=== PATIENT | male | born 1950 | race Caucasian/White ===

== ENCOUNTER → 2016-08-20 | Outpatient (CLI) | payer OTHER | LOC: FIMAGING 09:48 | PROVIDERS: ATTEND Family Medicine | DX: M16.11 Unilateral primary osteoarthritis, right hip (principal) ==

== ENCOUNTER 2016-10-12 13:34 | Observation (INO) | payer OTHER ==
[2016-10-12] MEDS ORDERED: NS 1,000 ML IV ONE (14:22)
[2016-10-12 14:35] LABS: % IMMATURE GRANULYOCYTES 0.6 % (0.0-1.1); ABSOLUTE IMMATURE GRANULOCYTES 0.09 10^3/uL (0.00-0.10); ADD DIFF? NO; ADD MORPH? NO; ADD SCAN? NO; ATYPICAL LYMPHOCYTE FLAG 0 (0-99); FRAGMENT RBC FLAG 0 (0-99); HEMATOCRIT 50.2 % (40.0-51.0); HEMOGLOBIN 17.8 g/dL (13.7-17.5); LEFT SHIFT FLG 10 (0-99); LIPEMIA HEMOLYSIS FLAG 90 (0-99); MEAN CELL HEMOGLOBIN 30.8 pg (27.9-34.1); MEAN CELL HEMOGLOBIN CONCENTR. 35.5 g/dL (32.4-36.7); MEAN PLATELET VOLUME 9.4 fL (8.7-11.7); PLATELET CLUMPS FLAG 10 (0-99); PLATELET COUNT 188 10^3/uL (150-400); RED BLOOD CELL COUNT 5.77 10^6/uL (4.40-6.38); RED CELL DISTRIBUTION WIDTH 12.6 % (11.5-15.2)
[2016-10-12 14:54] LABS: ANION GAP 12 mEq/L (8-16); CALCIUM 9.4 mg/dL (8.5-10.4); CARBON DIOXIDE 21 mEq/l (22-31); CHLORIDE 105 mEq/L (97-110); CREATININE 1.3 mg/dL (0.7-1.3); GLOMERULAR FILTRATION RATE 56; GLUCOSE 106 mg/dL (70-100); POTASSIUM 4.3 mEq/L (3.5-5.2); SODIUM 138 mEq/L (134-144)
[2016-10-12 15:27] LABS: COLOR AMBER; LEUKOCYTE ESTERASE,URINE NEGATIVE (NEGATIVE); NITRITE,URINE NEGATIVE (NEGATIVE)
--- NOTE | 2016-10-12 15:33 | EDPHY ---
H & P Stated Complaint: rlq abd pain low grade fever Source: Patient Exam Limitations: No limitations - Personal History Current Tetanus/Diphtheria Vaccine: Yes - Medical/Surgical History Hx Asthma: No Hx Chronic Respiratory Disease: No Hx Diabetes: No Hx Cardiac Disease: No Hx Renal Disease: Yes Hx Cirrhosis: No Hx Alcoholism: No Hx HIV/AIDS: No Hx Splenectomy or Spleen Trauma: No Other PMH: has only one kidney/r hip osteoarthritis - Social History Smoking Status: Never smoked Time Seen by Provider: 10/12/16 14:22 HPI/ROS: CHIEF COMPLAINT: abdominal pain HISTORY OF PRESENT ILLNESS: 66-year-old male presents emergency department with his complaining of right-sided abdominal pain that started upon awakening this morning. Patient reports he woke up this morning with a mild right upper quadrant abdominal aching. He then reports getting significant chills and rigors. He crawled back into bed, when he got up out of bed again had a sharp pain in his right lower quadrant radiating towards his umbilicus. Patient reports continued pain in his right lower quadrant. 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 Patient denies nausea or vomiting, subjective fevers and chills, normal bowel movement this morning. Patient denies urinary urgency, frequency or dysuria. REVIEW OF SYSTEMS: A comprehensive 10 point review of systems is otherwise negative aside from elements mentioned in the history of present illness. (Aydee Rowland) - Physical Exam Exam: Physical Exam Gen: Alert and Oriented, NAD HEENT: PERRL, moist mucous membranes NECK: no meningismus CV: regular rate and regular rhythm PULM: CTAB, no wheezes ABDOMEN: Obese, periumbilical and right lower quadrant tenderness to palpation , guarding, no ecchymosis BS present BACK: No CVA tenderness NEURO: Neurologically grossly intact EXTREMITIES: normal appearing SKIN: no rash or break in skin on exposed skin PSYCH: answers questions appropriately. (Aydee Rowland) Constitutional: Initial Vital Signs Temperature (C) 37.2 C 10/12/16 13:44 Heart Rate 103 H 10/12/16 13:44 Respiratory Rate 22 H 10/12/16 13:44 Blood Pressure 157/82 H 10/12/16 13:44 O2 Sat (%) 92 10/12/16 13:44 O2 Delivery Mode Room Air Allergies/Adverse Reactions: No Known Allergies Allergy (Unverified 10/12/16 13:42) Home Medications: Medication Instructions Recorded Amlodipine Besylate [Norvasc] 5 mg PO DAILY 10/12/16 Simvastatin [Zocor] 20 mg PO DAILY 10/12/16 amLODIPine BESYLATE [Norvasc 5 mg 5 mg PO DAILY 10/12/16 (*)] Medical Decision Making - Diagnostics Imaging Results: Imaging Impressions Abdomen CT 10/12/16 15:03 Impression: 1. Acute appendicitis with periappendiceal fluid suspicious for a rupture without visible abscess or free air. 2. Severely atrophic left kidney measuring approximately 2 cm. 3. Nonobstructing 2 mm right renal stone. 3. Additional findings, as above. Findings discussed with Aydee Rowland NP on October 12, 2016 at 1609 hours. ED Course/Re-evaluation: IV established, CBC, chemistry panel, lactate, LFTs, lipase, urinalysis ordered. Patient has a temperature of 38.5degrees orally. He will be given 650 mg of Tylenol rectally. Patient has a elevated white blood cell count [id number] with a left shift, chemistry panel is unremarkable, lactate is 1.9, urinalysis shows no evidence of infection. LFTs unremarkable aside from a total bilirubin of 1.7. CT abdomen pelvis obtained showing acute appendicitis. Patient is given 1 g of Invanz IV, Dr. Pacheco will take him to the operating room. (Aydee Rowland) Differential Diagnosis: Diagnosis considered but not limited to appendicitis, pyelonephritis, diverticulitis (Aydee Rowland) Other Provider: I have evaluated and participated in the management of this patient. My co- signature indicates that I have reviewed this chart and that I agree with the findings and the plan of care as documented. My personal history and physical findings include: 66-year-old male with right lower quadrant abdominal pain that began earlier today. He has a leukocytosis. On examination his abdomen is obese, with tenderness and guarding in the right lower quadrant. Lungs are clear to auscultation. Heart has regular rate and rhythm. He is awake and alert. CT scanning revealed appendicitis. He was seen by Dr. Kessler and will be taken to the operating room for appendectomy. (Danielle Vasquez) - Data Points Laboratory Results: Laboratory Results 10/12/16 14:25 10/12/16 14:25 10/12/16 10/12/16 10/12/16 15:10 14:25 14:25 WBC RBC Hgb Hct MCV MCH MCHC RDW Plt Count MPV Neut % (Auto) Lymph % (Auto) [place] % (Auto) Eos % (Auto) Baso % (Auto) Nucleat RBC Rel Count Absolute Neuts (auto) Absolute Lymphs (auto) Absolute Monos (auto) Absolute Eos (auto) Absolute Basos (auto) Absolute Nucleated RBC Immature Gran % Immature Gran # VBG Lactic Acid Sodium 138 mEq/L mEq/L (134-144) Potassium 4.3 mEq/L mEq/L (3.5-5.2) Chloride 105 mEq/L mEq/L (97-110) Carbon Dioxide 21 mEq/l L mEq/l (22-31) Anion Gap 12 mEq/L mEq/L (8-16) BUN 20 mg/dL mg/dL (7-23) Creatinine 1.3 mg/dL mg/dL (0.7-1.3) Estimated GFR 56 Glucose 106 mg/dL H mg/dL (70-100) Calcium 9.4 mg/dL mg/dL (8.5-10.4) Total Bilirubin 1.7 mg/dL H mg/dL (0.1-1.4) Conjugated Bilirubin 0.6 mg/dL H mg/dL (0.0-0.5) Unconjugated Bilirubin 1.1 mg/dL mg/dL (0.0-1.1) AST 26 IU/L IU/L (17-59) ALT 39 IU/L IU/L (21-72) Alkaline Phosphatase 87 IU/L IU/L (38-126) Total Protein 7.3 g/dL g/dL (6.3-8.2) Albumin 4.3 g/dL g/dL (3.5-5.0) Lipase 93.0 IU/L IU/L (23-300) Urine Color OBEY Urine Appearance HAZY Urine pH 6.0 (5.0-7.5) Ur Specific [place] 1.021 (1.002-1.030) Urine Protein 2+ H (NEGATIVE) Urine Ketones TRACE H (NEGATIVE) Urine Blood 1+ H (NEGATIVE) Urine Nitrate NEGATIVE (NEGATIVE) Urine Bilirubin NEGATIVE (NEGATIVE) Urine Urobilinogen NEGATIVE EU EU (0.2-1.0) Ur Leukocyte Esterase NEGATIVE (NEGATIVE) Urine RBC 3-5 /hpf H /hpf (0-3) Urine WBC NONE SEEN /hpf /hpf (0-3) Ur Epithelial Cells Not Reported Granular Casts 1-5 /lpf /lpf (0-1) Urine Mucus 4+ /lpf H /lpf (NONE-1+) Urine Glucose NEGATIVE (NEGATIVE) 10/12/16 10/12/16 14:25 14:25 WBC 14.12 10^3/uL H 10^3/uL (3.80-9.50) RBC 5.77 10^6/uL 10^6/uL (4.40-6.38) Hgb 17.8 g/dL H g/dL (13.7-17.5) Hct 50.2 % % (40.0-51.0) MCV 87.0 fL fL (81.5-99.8) MCH 30.8 pg pg (27.9-34.1) MCHC 35.5 g/dL g/dL (32.4-36.7) RDW 12.6 % % (11.5-15.2) Plt Count 188 10^3/uL 10^3/uL (150-400) MPV 9.4 fL fL (8.7-11.7) Neut % (Auto) 93.6 % H % (39.3-74.2) Lymph % (Auto) 4.3 % L % (15.0-45.0) [place] % (Auto) 1.2 % L % (4.5-13.0) Eos % (Auto) 0.1 % L % (0.6-7.6) Baso % (Auto) 0.2 % L % (0.3-1.7) Nucleat RBC Rel Count 0.0 % % (0.0-0.2) Absolute Neuts (auto) 13.21 10^3/uL H 10^3/uL (1.70-6.50) Absolute Lymphs (auto) 0.61 10^3/uL L 10^3/uL (1.00-3.00) Absolute Monos (auto) 0.17 10^3/uL L 10^3/uL (0.30-0.80) Absolute Eos (auto) 0.01 10^3/uL L 10^3/uL (0.03-0.40) Absolute Basos (auto) 0.03 10^3/uL 10^3/uL (0.02-0.10) Absolute Nucleated RBC 0.00 10^3/uL 10^3/uL (0-0.01) Immature Gran % 0.6 % % (0.0-1.1) Immature Gran # 0.09 10^3/uL 10^3/uL (0.00-0.10) VBG Lactic Acid 1.9 mmol/L mmol/L (0.7-2.1) Sodium Potassium Chloride Carbon Dioxide Anion Gap BUN Creatinine Estimated GFR Glucose Calcium Total Bilirubin Conjugated Bilirubin Unconjugated Bilirubin AST ALT Alkaline Phosphatase Total Protein Albumin Lipase Urine Color Urine Appearance Urine pH Ur Specific [place] Urine Protein Urine Ketones Urine Blood Urine Nitrate Urine Bilirubin Urine Urobilinogen Ur Leukocyte Esterase Urine RBC Urine WBC Ur Epithelial Cells Granular Casts Urine Mucus Urine Glucose Medications Given: Discontinued Medications Acetaminophen (Tylenol Rectal) 650 mg [place] EDNOW ONE Stop: 10/12/16 15:39 Last Admin: 10/12/16 16:19 Dose: 650 mg Sodium Chloride (Ns) 1,000 mls @ 0 mls/hr IV ONCE ONE PRN Reason: Wide Open Stop: 10/12/16 14:23 Last Admin: 10/12/16 14:38 Dose: 1,000 mls Ertapenem 1 gm/ Sodium (Chloride) 100 mls @ 200 mls/hr IV EDNOW ONE PRN Reason: Protocol Stop: 10/12/16 17:02 Last Admin: 10/12/16 17:21 Dose: 100 mls Departure - Departure Disposition: [facility] Inpatient Acute Clinical Impression: Acute appendicitis Qualifiers: Acute appendicitis type: with localized peritonitis Qualified Code(s): K35.3 - Acute appendicitis with localized peritonitis Condition: Fair
[2016-10-12 15:37] LABS: MUCUS 4+ /lpf (NONE-1+)
[2016-10-12 15:38] LABS: WBC,URINE NONE SEEN /hpf (0-3)
[2016-10-12] MEDS ORDERED: ACETAMINOPHEN 650 MG SUPP PR ONE (15:38)
[2016-10-12] MEDS ORDERED: IOPAMIDOL (ISOVUE-300) 100 ML BTL ONE (15:41)
[2016-10-12 15:53] LABS: ALBUMIN 4.3 g/dL (3.5-5.0); BILIRUBIN,TOTAL 1.7 mg/dL (0.1-1.4); BILIRUBIN-CONJUGATED 0.6 mg/dL (0.0-0.5); BILIRUBIN-UNCONJUGATED 1.1 mg/dL (0.0-1.1); TOTAL PROTEIN 7.3 g/dL (6.3-8.2)
[2016-10-12] MEDS ORDERED: ERTAPENEM 1 GM in NS 100 ML IV ONE (16:33)
[2016-10-12] MEDS ORDERED: BUPIVACAINE 0.25% 30 ML SDV ONE (17:05)
--- NOTE | 2016-10-12 17:24 | PDGENHP ---
History and Physical - Chief Complaint abd pain - History of Present Illness 66 y/o male with onset abd pain early today localizing to the RLQ. He came to the ED and was diagnosed with appendicitis and surgical consult requested History Information - Allergies/Home Medication List Allergies/Adverse Reactions: No Known Allergies Allergy (Unverified 10/12/16 13:42) Home Medications: Allopurinol 10/12/16 [Last Taken Unknown] Amlodipine Besylate 10/12/16 [Last Taken Unknown] SIMVASTATIN 10/12/16 [Last Taken Unknown] I have personally reviewed and updated: family history, medical history, social history, surgical history - Past Medical History hypertension, hyperlipidemia Additional medical history: osteoarthritis right hip - Surgical History Reports: no pertinent surgical hx - Family History Positive for: hypertension - Social History Smoking Status: Never smoked Alcohol Use: Sober Drug Use: None Additional social history: here with who has medical POA Review of Systems Constitutional: Reports: chills Cardiac: Reports: no symptoms Respiratory: Reports: no symptoms Gastrointestinal: Reports: abdominal pain, nausea Genitourinary: Reports: dysuria (pain with micturation) Muscolosketal: Reports: joint pain (right hip) Skin: Reports: no symptoms Neurological: Reports: no symptoms Hematologic/Lymphatic: Reports: no symptoms Immunologic/Allergy: Reports: no symptoms Physical Exam Temp Pulse Resp BP Pulse Ox 38.5 C H 87 22 H 147/82 H 94 10/12/16 15:04 10/12/16 15:27 10/12/16 15:27 10/12/16 15:27 10/12/16 15:27 Constitutional: obese, uncomfortable Cardiovascular: regular rate and rhythym Respiratory: no respiratory distress, no rales or rhonchi Gastrointestinal: tenderness (RLQ/+ Rovising's sign), other (small umbilical hernia) Genitourinary: no bladder fullness Skin: warm Neurologic: AAOx3 Psychiatric: interacting appropriately, not anxious Lab Data & Imaging Review 10/12/16 14:25 10/12/16 14:25 WBC 14.12 10^3/uL (3.80-9.50) H 10/12/16 14:25 RBC 5.77 10^6/uL (4.40-6.38) 10/12/16 14:25 Hgb 17.8 g/dL (13.7-17.5) H 10/12/16 14:25 Hct 50.2 % (40.0-51.0) 10/12/16 14:25 MCV 87.0 fL (81.5-99.8) 10/12/16 14:25 MCH 30.8 pg (27.9-34.1) 10/12/16 14:25 MCHC 35.5 g/dL (32.4-36.7) 10/12/16 14:25 RDW 12.6 % (11.5-15.2) 10/12/16 14:25 Plt Count 188 10^3/uL (150-400) 10/12/16 14:25 MPV 9.4 fL (8.7-11.7) 10/12/16 14:25 Neut % (Auto) 93.6 % (39.3-74.2) H 10/12/16 14:25 Lymph % (Auto) 4.3 % (15.0-45.0) L 10/12/16 14:25 [place] % (Auto) 1.2 % (4.5-13.0) L 10/12/16 14:25 Eos % (Auto) 0.1 % (0.6-7.6) L 10/12/16 14:25 Baso % (Auto) 0.2 % (0.3-1.7) L 10/12/16 14:25 Nucleat RBC Rel Count 0.0 % (0.0-0.2) 10/12/16 14:25 Absolute Neuts (auto) 13.21 10^3/uL (1.70-6.50) H 10/12/16 14:25 Absolute Lymphs (auto) 0.61 10^3/uL (1.00-3.00) L 10/12/16 14:25 Absolute Monos (auto) 0.17 10^3/uL (0.30-0.80) L 10/12/16 14:25 Absolute Eos (auto) 0.01 10^3/uL (0.03-0.40) L 10/12/16 14:25 Absolute Basos (auto) 0.03 10^3/uL (0.02-0.10) 10/12/16 14:25 Absolute Nucleated RBC 0.00 10^3/uL (0-0.01) 10/12/16 14:25 Immature Gran % 0.6 % (0.0-1.1) 10/12/16 14:25 Immature Gran # 0.09 10^3/uL (0.00-0.10) 10/12/16 14:25 VBG Lactic Acid 1.9 mmol/L (0.7-2.1) 10/12/16 14:25 Sodium 138 mEq/L (134-144) 10/12/16 14:25 Potassium 4.3 mEq/L (3.5-5.2) 10/12/16 14:25 Chloride 105 mEq/L (97-110) 10/12/16 14:25 Carbon Dioxide 21 mEq/l (22-31) L 10/12/16 14:25 Anion Gap 12 mEq/L (8-16) 10/12/16 14:25 BUN 20 mg/dL (7-23) 10/12/16 14:25 Creatinine 1.3 mg/dL (0.7-1.3) 10/12/16 14:25 Estimated GFR 56 10/12/16 14:25 Glucose 106 mg/dL (70-100) H 10/12/16 14:25 Calcium 9.4 mg/dL (8.5-10.4) 10/12/16 14:25 Total Bilirubin 1.7 mg/dL (0.1-1.4) H 10/12/16 14:25 Conjugated Bilirubin 0.6 mg/dL (0.0-0.5) H 10/12/16 14:25 Unconjugated Bilirubin 1.1 mg/dL (0.0-1.1) 10/12/16 14:25 AST 26 IU/L (17-59) 10/12/16 14:25 ALT 39 IU/L (21-72) 10/12/16 14:25 Alkaline Phosphatase 87 IU/L (38-126) 10/12/16 14:25 Total Protein 7.3 g/dL (6.3-8.2) 10/12/16 14:25 Albumin 4.3 g/dL (3.5-5.0) 10/12/16 14:25 Lipase 93.0 IU/L (23-300) 10/12/16 14:25 Urine Color OBEY 10/12/16 15:10 Urine Appearance HAZY 10/12/16 15:10 Urine pH 6.0 (5.0-7.5) 10/12/16 15:10 Ur Specific [place] 1.021 (1.002-1.030) 10/12/16 15:10 Urine Protein 2+ (NEGATIVE) H 10/12/16 15:10 Urine Ketones TRACE (NEGATIVE) H 10/12/16 15:10 Urine Blood 1+ (NEGATIVE) H 10/12/16 15:10 Urine Nitrate NEGATIVE (NEGATIVE) 10/12/16 15:10 Urine Bilirubin NEGATIVE (NEGATIVE) 10/12/16 15:10 Urine Urobilinogen NEGATIVE EU (0.2-1.0) 10/12/16 15:10 Ur Leukocyte Esterase NEGATIVE (NEGATIVE) 10/12/16 15:10 Urine RBC 3-5 /hpf (0-3) H 10/12/16 15:10 Urine WBC NONE SEEN /hpf (0-3) 10/12/16 15:10 Ur Epithelial Cells Not Reported 10/12/16 15:10 Granular Casts 1-5 /lpf (0-1) 10/12/16 15:10 Urine Mucus 4+ /lpf (NONE-1+) H 10/12/16 15:10 Urine Glucose NEGATIVE (NEGATIVE) 10/12/16 15:10 Interpretation: CT shows 2 appendicoliths/periappendiceal inflammation Assessment & Plan Assessment: Acute appendicitis (Acute) obesity HTN OA/hx gout I recommended lap appendectomy and repair of his umbilical hernia We discussed the risks and expected recovery, informed consent was obtined Plan: lap appendectomy/repair umbilical hernia IV Invanz crow-op SCD's for VTE prophylaxis
[2016-10-12] MEDS ORDERED: MIDAZOLAM 2 MG/2 ML VIAL ONE (17:38)
[2016-10-12] MEDS ORDERED: DEXAMETHASONE 4 MG/ML VIAL ONE (17:44)
[2016-10-12] MEDS ORDERED: fentaNYL 100 MCG/2 ML INJ ONE (17:44)
[2016-10-12] MEDS ORDERED: PROPOFOL/EMULSION 500 MG/50 ML BOTTLE IV ONE (17:44)
[2016-10-12] MEDS ORDERED: ONDANSETRON 4 MG/2 ML VIAL ONE (17:45)
[2016-10-12] MEDS ORDERED: LIDOCAINE 2% 100 MG/5 ML SYR ONE (17:45)
[2016-10-12] MEDS ORDERED: ROCURONIUM 50 MG/5 ML VIAL ONE (17:45)
[2016-10-12] MEDS ORDERED: PHENYLEPHRINE HCL 100 MCG/ML SYR ONE (18:00)
[2016-10-12] MEDS ORDERED: SUGAMMADEX SODIUM 500 MG/5 ML VIAL IVP ONE (18:39)
--- NOTE | 2016-10-12 19:00 | POSTOPPROG ---
Post Op Note Date of Operation: 10/12/16 Surgeon: Pedro Pacheco (, FACS) Anesthesiologist: Theo Meléndez MD Anesthesia: GET(General Endotracheal) Pre-op Diagnosis: appendicits/umbilical hernia Post-op Diagnosis: same Procedure: lap appendectomy/repair umbilical hernia Findings: acute appendicitis/non-incarcerated umbilical hernia Inf/Abcess present in the surg proc area at time of surgery?: Yes Depth: Organ Space Specimen(s): appendix
[2016-10-12] MEDS ORDERED: ONDANSETRON 4 MG/2 ML VIAL IVP PRN (19:01)
[2016-10-12] MEDS ORDERED: HYDROmorphONE/DILAUDID 1 MG/ML SYR IVP PRN (19:01)
[2016-10-12] MEDS ORDERED: METOCLOPRAMIDE 10 MG/2 ML VIAL IVP PRN (19:01)
[2016-10-12] MEDS ORDERED: MAGNESIUM HYDROXIDE 30 ML UDCUP PO PRN (19:01)
[2016-10-12] MEDS ORDERED: TEMAZEPAM 15 MG CAP PO PRN (19:01)
[2016-10-12] MEDS ORDERED: HYDROCODONE/APAP 5/325 TAB PO PRN (19:01)
[2016-10-12] MEDS ORDERED: KETOROLAC 15 MG/1 ML SDV ONE (19:08)
[2016-10-12] MEDS: LR 1,000 ML IV SCH (20:23)
[2016-10-12] MEDS: KETOROLAC 15 MG/1 ML SDV IVP SCH (23:42)
--- NOTE | 2016-10-13 04:58 | GOP ---
[f rep st] OPERATIVE REPORT DATE OF OPERATION: SURGEON: Pedro Pacheco MD, FACS ANESTHESIA: General endotracheal. ANESTHESIOLOGIST: Theo Meléndez MD PREOPERATIVE DIAGNOSIS: 1. Acute appendicitis. 2. Umbilical hernia. POSTOPERATIVE DIAGNOSIS: 1. Acute appendicitis. 2. Umbilical hernia. PROCEDURE PERFORMED: 1. Laparoscopic appendectomy. 2. Open repair umbilical hernia. FINDINGS: 1. Acute suppurative appendicitis without perforation or gangrene. 1. Small not incarcerated umbilical hernia. ESTIMATED BLOOD LOSS: 10 mL. DESCRIPTION OF PROCEDURE: After informed consent was obtained, the patient was brought to the operating room and placed under general anesthesia. The abdomen was prepped and draped in usual fashion. Before proceeding, a time-out and identification of the patient was performed. The patient had received 1 g of Invanz preoperatively. 0.25% Marcaine was used to infiltrate the infraumbilical skin. A curvilinear incision was made and dissection was carried out down to the fascia. The umbilical stalk was detached from the underlying fascia and a small hernia was identified and reduced into the preperitoneal space. This measured no more than 6 mm in diameter. With ventral traction applied to the abdominal wall, Veress needle was introduced through the through the umbilical hernia into the peritoneum and position was confirmed by saline infusion. A pneumoperitoneum was established with CO2 gas to a pressure of 15 mmHg. The Veress needle was withdrawn and replaced with a 12 mm bladeless trocar. A 0 degree scope was introduced and the peritoneal cavity was visualized. Additional 5 mm ports were placed in the suprapubic midline and in the left lower quadrant under direct visualization. The table was positioned in Trendelenburg. The 5 mm ports were used introduced the atraumatic grasping forceps. The appendix was mobilized and noted to be suppurative, but without evidence of perforation or gangrene. The Harmonic Scalpel was used to dispatch the mesoappendix. The appendix was from the cecum with a firing of the ELOINA stapler and the appendix was retrieved through the umbilical port site using an Endopouch. The right lower quadrant pericolic gutter were irrigated with normal saline until the effluent was clear. Hemostasis appeared secure. The pneumoperitoneum was evacuated. All ports were removed. The umbilical fascial defect was repaired transversely with interrupted 0 Vicryl sutures. Subcutaneous tissues were closed with 3-0 and 4-0 Monocryl suture for a final subcuticular closure of all incisions. Mastisol and Steri-Strips were applied. The patient was returned extubated to the recovery room in satisfactory condition. Needle, sponge, and instrument counts were correct. COMPLICATIONS: None. /[id number]/MODL MTDD
[2016-10-13] MEDS: KETOROLAC 15 MG/1 ML SDV IVP SCH ×2 (05:24→11:08)
[2016-10-13] MEDS: LR 1,000 ML IV SCH (05:25)
[2016-10-13 07:57] VITALS: BP 126/73; PULSE 72; RESP 18; TEMP 98.2; O2SAT 94
--- NOTE | 2016-10-13 08:39 | PDDCSUM ---
Discharge Summary Discharge Summary: DOA: 10/12 DOD: 10/13/16 DC Dx: appendicitis Procedure: lap appendectomy Hospital course: 66 y/o male with acute suppurative appendicitis underwent appendectomy after receiving one gram Ertapenam. Post op he had mild pain controlled with Toradol. He received a second dose of Ertapenam the morning after surgery and his diet was advance. He was discharged home without additional antibiotics and will follow up in my office in the upcoming week before he leaves for vacation. He received Lovenox 40 mg post op and will start ASA 325 mg/day for 30 days. Additional Rx written for Adrian #[id number] He will resume Lipitor, Norvasc as prescribed. condition at time of discharge improved. Jason Pacheco MD, FACS
[2016-10-13] MEDS ORDERED: ENOXAPARIN 40 MG/0.4 ML SYR SC SCH (09:00)
[2016-10-13] MEDS ORDERED: amLODIPine BESYLATE 5 MG TAB PO SCH (09:00)
[2016-10-13] MEDS ORDERED: ATORVASTATIN CALCIUM 10 MG TAB PO SCH (09:00)
[2016-10-13] MEDS ORDERED: ASPIRIN 325 MG TAB PO SCH (09:00)
[2016-10-13] MEDS ORDERED: ERTAPENEM 1 GM in NS 100 ML IV SCH (09:00)
== END 2016-10-13 11:52 | disposition home or self-care (01) ==
LOC: INTOOBSV 16:32 → F1N 20:07
PROVIDERS: ADMIT Surgery; ATTEND Surgery
DX: K35.80 Unspecified acute appendicitis (principal); K42.9 Umbilical hernia without obstruction or gangrene; N20.0 Calculus of kidney; Q60.0 Renal agenesis, unilateral; I10 Essential (primary) hypertension; E78.5 Hyperlipidemia, unspecified; M10.9 Gout, unspecified
CPT/HCPCS: 96374; G0378; J1100; J1335; J1650; J1885; J2001; J2250; J2370; J2405; J2704; J3010; Q9967

== ENCOUNTER 2017-01-28 05:59 | Inpatient (IN) | payer OTHER ==
[2017-01-28] MEDS ORDERED: TRANEXAMIC ACID 3,000 MG in NS 50 ML IRR ONE (06:00)
[2017-01-28] MEDS ORDERED: ROPIVACAINE 0.2% 80 MG, EPINEPHrine 0.2 MG, KETOROLAC TROMETHAMINE 30 MG in BAG 0 ML IU ONE (06:00)
[2017-01-28] MEDS ORDERED: FAMOTIDINE 20 MG TAB PO ONE (06:44)
[2017-01-28] MEDS ORDERED: ACETAMINOPHEN 325 MG TAB PO ONE (06:44)
[2017-01-28] MEDS ORDERED: DEXAMETHASONE 4 MG/ML VIAL IVP ONE (06:44)
[2017-01-28] MEDS ORDERED: ceFAZolin 2 GM/DEXTROSE 100 ML IV ONE (06:44)
[2017-01-28] MEDS ORDERED: LR 1,000 ML IV ONE (06:46)
[2017-01-28] MEDS ORDERED: TRANEXAMIC ACID 3,000 MG/50 ML BAG IRR ONE (06:56)
[2017-01-28] MEDS ORDERED: LIDOCAINE 1% 2 ML INJ ID PRN (07:09)
[2017-01-28] MEDS ORDERED: LIDOCAINE 1% 2 ML INJ ONE (07:13)
--- NOTE | 2017-01-28 07:16 | PDHPUP ---
History & Physical Update H&P update statement: This history and physical update is based on an assessment of the patient which was completed after admission or registration (within 24 hours), but prior to the surgery/procedure. H&P update: H&P reviewed & patient examined, no change in patient's condition since H&P completed
[2017-01-28] MEDS ORDERED: MIDAZOLAM 2 MG/2 ML VIAL IVP ONE (07:40)
--- NOTE | 2017-01-28 07:40 | PDANEPAE ---
ANE History of Present Illness right hip OA p/f R KACY ANE Past Medical History - Cardiovascular History Hx Hypertension: Yes Hx Arrhythmias: No Hx Chest Pain: No Hx Coronary Artery / Peripheral Vascular Disease: No Hx CHF / Valvular Disease: No Hx Palpitations: No Cardiovascular History Comment: pcp monitors bp meds - Pulmonary History Hx COPD: No Hx Asthma/Reactive Airway Disease: No Hx Recent Upper Respiratory Infection: No Hx Oxygen in Use at Home: No Hx Sleep Apnea: No Sleep Apnea Screening Result - Last Documented: Positive Pulmonary History Comment: hx of whit stopped using cpap years ago- still triggers for whit - Neurologic History Hx Cerebrovascular Accident: No Hx Seizures: No Hx Dementia: No - Endocrine History Hx Diabetes: No Obesity: yes, severe - Renal History Hx Renal Disorders: Yes Renal History Comment: born with only one kidney- right - Liver History Hx Hepatic Disorders: No - Neurological & Psychiatric Hx Hx Neurological and Psychiatric Disorders: No - Cancer History Hx Cancer: No - Congenital Disorder History Hx Congenital Disorders: No - GI History GERD: mild Hx Gastrointestinal Disorders: Yes Gastrointestinal History Comment: hx of umbilical hernia repair. uses mag citrate to help with constipation and reflux - Other Health History Other Health History: gout. wears glasses - Chronic Pain History Chronic Pain: Yes (right hip) - Surgical History Prior Surgeries: 10/12/16 lap appy and umbilical hernia repair with Johs. wisdom teeth. vasectomy ANE Review of Systems Review of Systems: - Exercise capacity METS (RN): 4 METS ANE Patient History - Allergies Allergies/Adverse Reactions: No Known Allergies Allergy (Verified 12/26/16 10:24) - Home Medications Home medications: home medication list seen and reviewed Home Medications: Simvastatin [Zocor] 20 mg PO DAILY 10/12/16 [Last Taken 01/28/17 05:00] Allopurinol [Allopurinol 300 MG (RX)] 300 mg PO DAILY 12/23/16 [Last Taken 01/21] Herbals/Supplements -Info Only 1 ea PO DAILY 12/23/16 [Last Taken 01/14/17] Multivitamins [Multivitamin (*)] 1 each PO DAILY 12/23/16 [Last Taken 01/28/17 05:00] [place]-3 Fatty Acids [Fish Oil 1000 mg (*)] 1,000 mg PO DAILY 12/23/16 [Last Taken 01/14/17] - NPO status NPO Since - Liquids (Date): 01/27/17 NPO Since - Liquids (Time): 21:45 NPO Since - Solids (Date): 01/27/17 NPO Since - Solids (Time): 18:00 - Anes Hx Anes Hx: no prior problems - Smoking Hx Smoking Status: Former smoker - Family Anes Hx Family Hx Anesthesia Complications: none ANE Labs/Vital Signs - Vital Signs Blood Pressure: 142/84 Heart Rate: 70 Respiratory Rate: 16 O2 Sat (%): 97 Height: 185.42 cm Weight: 131.542 kg ANE Physical Exam - Airway Neck exam: FROM Mallampati Score: Class 2 Mouth exam: normal dental/mouth exam - Pulmonary Pulmonary: no respiratory distress - Cardiovascular Cardiovascular: regular rate and rhythym - ASA Status ASA Status: III ANE Anesthesia Plan Anesthesia Plan: spinal
[2017-01-28] MEDS ORDERED: PROPOFOL/EMULSION 500 MG/50 ML BOTTLE IV ONE (07:46)
[2017-01-28] MEDS ORDERED: LIDOCAINE 2% 5 ML SDV ONE (07:46)
[2017-01-28] MEDS ORDERED: PROPOFOL 200 MG/20 ML VIAL ONE ×2 (08:54)
[2017-01-28] MEDS ORDERED: OXYCODONE/APAP 5/325 TAB PO PRN (09:14)
[2017-01-28] MEDS ORDERED: ALBUTEROL 3 ML DEYVIAL IH PRN (09:14)
[2017-01-28] MEDS ORDERED: NALOXONE HCL 0.4 MG/ML INJ IVP PRN (09:14)
[2017-01-28] MEDS ORDERED: ONDANSETRON 4 MG/2 ML VIAL IVP PRN ×2 (09:14→09:49)
[2017-01-28] MEDS ORDERED: HYDROmorphONE/DILAUDID 1 MG/ML INJ IVP PRN (09:14)
[2017-01-28] MEDS ORDERED: fentaNYL 100 MCG/2 ML INJ IVP PRN (09:14)
[2017-01-28] MEDS ORDERED: ACETAMINOPHEN 500 MG TAB PO PRN (09:14)
--- NOTE | 2017-01-28 09:48 | POSTOPPROG ---
Post Op Note Date of Operation: 01/28/17 Surgeon: Randy Kenyon Financial Analyst Accountant: jignesh cadena Anesthesiologist: anibal Anesthesia: IV Sedation, Spinal Pre-op Diagnosis: R hip OA Post-op Diagnosis: R hip OA Indication: failed conservative therapies Procedure: R KACY Inf/Abcess present in the surg proc area at time of surgery?: No EBL: Minimal
[2017-01-28] MEDS ORDERED: LACTULOSE 20 GM/30 ML UDCUP PO PRN (09:49)
[2017-01-28] MEDS ORDERED: ONDANSETRON DISINTEGRATING 4 MG TAB PO PRN (09:49)
[2017-01-28] MEDS ORDERED: oxyCODONE IR 5 MG TAB PO PRN (09:49)
[2017-01-28] MEDS ORDERED: PROMETHAZINE HCL 25 MG/ML INJ IVP PRN (09:49)
[2017-01-28] MEDS ORDERED: diphenhydrAMINE 25 MG CAP PO PRN (09:49)
[2017-01-28] MEDS ORDERED: PROMETHAZINE HCL 25 MG SUPPR PR PRN (09:49)
[2017-01-28] MEDS ORDERED: POLYETHYLENE GLYCOL 3350 17 GM PKT PO PRN (09:49)
[2017-01-28] MEDS ORDERED: METOCLOPRAMIDE 10 MG/2 ML VIAL IVP PRN (09:49)
[2017-01-28] MEDS ORDERED: BISACODYL 10 MG SUPP PR PRN (09:49)
[2017-01-28] MEDS ORDERED: TEMAZEPAM 15 MG CAP PO PRN (09:49)
[2017-01-28] MEDS ORDERED: DIPHENOXYLATE/ATROPINE LOMOTIL 1 TAB PO PRN (09:49)
[2017-01-28] MEDS ORDERED: CYCLOBENZAPRINE 10 MG TAB PO PRN (09:49)
[2017-01-28] MEDS ORDERED: MAGNESIUM HYDROXIDE 30 ML UDCUP PO PRN (09:49)
--- NOTE | 2017-01-28 09:55 | POSTANESTH ---
Post Anesthetic Evaluation Cardiovascular Status: Normal, Stable Respiratory Status: Normal, Stable Level of Consciousness/Mental Status: Can Participate in Eval Pain Control: Adequate, Prn Tx Ordered Nausea/Vomiting Control: Adequate, Prn Tx Ordered Complications Possibly Related to Anesthesia: None Noted
[2017-01-28] MEDS ORDERED: LR 1,000 ML IV SCH (10:00)
[2017-01-28] MEDS: ACETAMINOPHEN 325 MG TAB PO SCH ×3 (11:56→23:29)
[2017-01-28] MEDS: ceFAZolin 2 GM/DEXTROSE 100 ML IV SCH ×2 (16:01→23:27)
[2017-01-28] MEDS: ASPIRIN 325 MG TAB PO SCH (20:44)
[2017-01-28] MEDS: SENNOSIDES/DOCUSATE SODIUM TAB PO SCH (20:44)
[2017-01-28] MEDS: FAMOTIDINE 20 MG TAB PO SCH (20:44)
--- NOTE | 2017-01-29 05:30 | GOP ---
[f rep st] OPERATIVE REPORT DATE OF OPERATION: 01/28/2017 SURGEON: Lata Kenyon MD TRANSPLANTER ORCHID: ARIADNA Atkins. PREOPERATIVE DIAGNOSIS: Right hip osteoarthritis. POSTOPERATIVE DIAGNOSIS: Right hip osteoarthritis. PROCEDURE PERFORMED: Right total hip arthroplasty with x-ray. FINDINGS: ESTIMATED BLOOD LOSS: 10 ml INDICATIONS: The patient has progressively worsening arthritis of the hip which has failed medical m anagement. The patient understands the treatment options including continued non-operative care and has selected surgical intervention. The patient has decided to undergo total hip arthroplasty via th e direct anterior approach, understanding the risks of the procedure including, but not limited to, n eurovascular injury, infection, persistent pain, component wear and loosening, deep venous thrombosis , pulmonary embolism, limb length inequality, hip instability (including dislocation), and intra-oper ative fractures. DESCRIPTION OF PROCEDURE: After proper identification of the patient including verification and karina ing the surgical site, the patient was brought to the operating room and placed in the supine positio n. All bony prominences were well padded. Anesthesia was induced without complication and intraveno us prophylactic antibiotics were administered prior to skin incision. The operative leg was placed in the Trumpf Arch table extension and the well leg in a Yellofin leg ho lder. The patient was prepped and draped in the usual sterile fashion. The C-arm was draped for int ra-operative fluoroscopy to check acetabular position, femoral component position including leg lengt h and femoral offset. Attention was then drawn to surgical exposure of the hip. An incision was made with a #10 Bard Casandra r blade starting 3 cm lateral and 3 cm distal to the anterior superior iliac spine measuring 8-10 cm and coursing distally toward the greater trochanter. The skin and subcutaneous tissues were divided sharply down to the fascia kari. The fascia kari was incised in line with the skin incision exposing the underlying tensor fascia kari muscle. The muscle was bluntly elevated from the fascia and the f irst extracapsular Cobra retractor was placed laterally at the junction of the superior femoral neck and greater trochanter. The lateral femoral circumflex vessels were identified, cauterized, and divi ded with the Aquamantys bipolar cautery. The deep investing fascia of the TFL was divided to allow p oni mobilization of the muscle preventing damage during the retraction. The reflected head of the rectus femoris muscle was elevated off the anterior hip capsule and a medial Cobra retractor was plac ed just proximal to the lesser trochanter. The anterior capsulotomy was made sharply from the superolateral acetabulum to the saddle junction of the superior femoral neck and greater trochanter, then coursing inferomedial towards the lesser troc hanter. The retractors were then placed in the intracapsular position for femoral neck osteotomy. C orresponding to pre-operative templating, the osteotomy was made with the oscillating saw carefully p rotecting the greater trochanter and soft tissues. The femoral head was removed from the acetabulum with a corkscrew and confirmed to be severely arthritic with exposed bone, deformity and osteophytes. Similar findings were confirmed in the acetabulum. The Arch table extension was then placed in 40 degrees external rotation. Attention was then drawn to the acetabular preparation. After placement of the anterior and posterio r Cobra retractors outside the labrum and intracapsular, the circumferential labrum was removed sharp ly. The foveal contents were then removed and hemostasis obtained with cautery. The first reamer selected was sized using the removed femoral head. Reaming began with medialization and then commenced in 2 mm increments at 45 degrees of abduction and 15 degrees of anteversion using fluoroscopic navigation. Reaming ceased 1 mm less than the definitive acetabular component and fransico esponded to the pre-operative templating. The final acetabular component was inserted using fluorosc opy to achieve proper orientation yielding excellent purchase and stability in the acetabulum. The f inal acetabular liner was then placed and its seating confirmed. Attention was then turned to the femur. The Arch table extension was placed in extension and adducti on, delivering the osteotomized femoral neck into the wound. A 2-pronged femoral elevator was placed at the calcar and another at the tip of the greater trochanter. The posterolateral capsule was rele ased with cautery allowing mobilization of the femur lateral and anterior for preparation. The exter nal rotators were visualized and preserved. A curette and rongeur were used to open the starting poi nt for broaching. Serial broaching started with the #0 broach and ended with the broach that exhibit ed excellent fit in the proximal femur. A change in pitch during mallet strikes was accompanied by t he inability to advance the broach any further. The trial reduction was performed and fluoroscopic n avigation was utilized to check limb length. Adjustments were made to equalize limb length according ly. After the final trials were accepted they were removed and the wound was copiously lavaged. The femo ral component was seated to the same depth as the final broach and the femoral head was impacted onto the clean trunnion. The hip was then reduced for the final time and once more fluoroscopy was used to check that limb length equality was achieved. The wound was irrigated and closed in layers, the fascia kari with 2-0 Quill, the subcutaneous tissue with 2-0 Quill, and the skin with Dermabond. Sterile dressings were applied. Final sharps and spon ge counts were accurate. The patient was then transferred to a hospital bed and brought to the [facility] room in stable condition. /[id number]/MODL
[2017-01-29 05:44] LABS: HEMATOCRIT 41.9 % (40.0-51.0); HEMOGLOBIN 14.5 g/dL (13.7-17.5)
[2017-01-29] MEDS: ACETAMINOPHEN 325 MG TAB PO SCH ×2 (05:50→11:25)
[2017-01-29 07:39] VITALS: BP 128/88; PULSE 67; RESP 14; TEMP 98.1; O2SAT 93
--- NOTE | 2017-01-29 07:53 | SOAPPROG ---
SOAP Progress Note Assessment/Plan: Assessment: Patient is doing well POD 1 s/p R KACY Pain management: pain is well controlled on oral pain meds. VTE ppx: recommend aspirin daily for 3 weeks, cont SHEILA and SCDs Anemia: level is expected initially postop. Asymptomatic. Continue to monitor D/c planning: d/c to home today pending release from PT Plan: 01/29/17 07:53 Objective: Vital Signs Temp Pulse Resp BP Pulse Ox 36.7 C 67 14 128/88 H 93 01/29/17 07:38 01/29/17 07:38 01/29/17 07:38 01/29/17 07:38 01/29/17 07:38 Laboratory Results 01/29/17 04:44 01/28/17 01/29/17 01/30/17 05:59 05:59 05:59 Intake Total 1345 Output Total 350 Balance 995 ICD10 Worksheet Patient Problems: Problems Problem Status Onset Osteoarthritis of right hip Acute Acute appendicitis Acute
[2017-01-29] MEDS: ASPIRIN 325 MG TAB PO SCH (08:34)
[2017-01-29] MEDS: FAMOTIDINE 20 MG TAB PO SCH (08:40)
[2017-01-29] MEDS: SENNOSIDES/DOCUSATE SODIUM TAB PO SCH (08:43)
[2017-01-29] MEDS ORDERED: amLODIPine BESYLATE 5 MG TAB PO SCH (09:00)
[2017-01-29] MEDS ORDERED: ALLOPURINOL 300 MG TAB PO SCH (09:00)
[2017-01-29] MEDS ORDERED: ATORVASTATIN CALCIUM 10 MG TAB PO SCH (09:00)
[2017-01-29] MEDS ORDERED: Simvastatin [Zocor] 20 MG PO SCH (09:00)
--- NOTE | 2017-01-29 09:42 | GDS ---
[f rep st] DISCHARGE SUMMARY ADMISSION DIAGNOSIS: Right hip osteoarthritis. DISCHARGE DIAGNOSIS: Right hip osteoarthritis. PROCEDURE: Right total hip arthroplasty. VTE PROPHYLAXIS: Full-strength aspirin x21 days. BRIEF DESCRIPTION OF HOSPITAL STAY: Patient was admitted for an elective joint arthroplasty. The pa tient tolerated the procedure well and has passed physical therapy. The patient was given appropriat e antibiotic prophylaxis and venous thromboembolism prophylaxis. The patient's pain was well control led on oral pain medication, patient was holding down food, and had urinated. Decision was made to d ischarge the patient. The patient was given post-operative prescriptions pre-operatively. PLAN: Please follow up with Dr. Kenyon as scheduled on February 17, 2017. /[id number]/MODL
--- NOTE | 2017-01-29 14:08 | ASDISCHSUM ---
Discharge Information Plan Status:Home with No Needs Medically Cleared to Leave: Discharge Date:01/29/2017 11:34 AM CM D/C Disposition:Home, Routine, Self-Care ADT D/C Disposition:Home, Routine, Self-Care Projected Discharge Date:01/29/2017 11:34 AM Transportation at D/C: Discharge Delay Reason: Follow-Up Date:01/29/2017 11:34 AM Discharge Slot: Final Diagnosis: Placement Information Patient Contact Information Contact Name:ORAL Relationship: Address:[address] Work Phone: City:[place] Alternate Phone: [facility]/Zip Code:[place] [address] Email: Financial Information Financial Class:MC Primary Plan Desc:MEDICARE INPATIENT Primary Plan Number:[id number] Secondary Plan Desc:[employer] HMO OPEN ACC LOCAL Secondary Plan Number:[id number] Assessment Information Intervention Information
== END 2017-01-29 11:34 | disposition home or self-care (01) | DRG 470 ==
LOC: F3N 05:59
PROVIDERS: ADMIT Orthopaedic Surgery; ATTEND Orthopaedic Surgery
PROC: 0SR904Z Replacement of Right Hip Joint with Ceramic on Polyethylene Synthetic Substitute, Open Approach (ICD-10-PCS; principal; 2017-01-28 08:15)
DX: M16.11 Unilateral primary osteoarthritis, right hip (principal); Q60.0 Renal agenesis, unilateral; I10 Essential (primary) hypertension; G47.33 Obstructive sleep apnea (adult) (pediatric); Z87.891 Personal history of nicotine dependence
CPT/HCPCS: 97116-GP; 97161-GP; 97165-GO; 97530-GP; G8978-GP-CJ; G8979-GP-CI; G8980-GP-CI; G8987-GO-CI; G8988-GO-CI; G8989-GO-CI; J0171; J0690; J1100; J1885; J2250; J2704; J2795

== ENCOUNTER 2017-04-28 06:57 | Day surgery (SDC) | payer OTHER ==
[2017-04-28] MEDS ORDERED: LIDOCAINE 1% 2 ML INJ ONE (07:17)
[2017-04-28] MEDS ORDERED: LR 1,000 ML IV ONE (07:19)
[2017-04-28] MEDS ORDERED: LIDOCAINE 1% 2 ML INJ ID PRN (07:19)
[2017-04-28 07:35] VITALS: PULSE 70
--- NOTE | 2017-04-28 08:36 | PDANEPAE ---
ANE History of Present Illness 67 yo for colonoscopy ANE Past Medical History - Cardiovascular History Hx Hypertension: Yes Hx Arrhythmias: No Hx Chest Pain: No Hx Coronary Artery / Peripheral Vascular Disease: No Hx CHF / Valvular Disease: No Hx Palpitations: No Cardiovascular History Comment: pcp monitors bp meds - Pulmonary History Hx COPD: No Hx Asthma/Reactive Airway Disease: No Hx Recent Upper Respiratory Infection: No Hx Oxygen in Use at Home: No Hx Sleep Apnea: No Sleep Apnea Screening Result - Last Documented: Positive Pulmonary History Comment: hx of whit stopped using cpap years ago- still triggers for whit - Neurologic History Hx Cerebrovascular Accident: No Hx Seizures: No Hx Dementia: No - Endocrine History Hx Diabetes: No - Renal History Hx Renal Disorders: Yes Renal History Comment: born with only one kidney- right - Liver History Hx Hepatic Disorders: No - Neurological & Psychiatric Hx Hx Neurological and Psychiatric Disorders: No - Cancer History Hx Cancer: No - Congenital Disorder History Hx Congenital Disorders: Yes Congenital History Comment: born with one kidney - GI History Hx Gastrointestinal Disorders: Yes Gastrointestinal History Comment: hx of umbilical hernia repair. uses mag citrate to help with constipation and reflux - Other Health History Other Health History: gout. wears glasses - Chronic Pain History Chronic Pain: Yes (lower back problems) - Surgical History Prior Surgeries: 10/12/16 lap appy and umbilical hernia repair with Johs. wisdom teeth. vasectomy appy 2017. hip replacement 2017 ANE Review of Systems Review of Systems: - Exercise capacity METS (RN): 5 METS ANE Patient History - Allergies Allergies/Adverse Reactions: No Known Allergies Allergy (Verified 12/26/16 10:24) - Home Medications Home medications: home medication list seen and reviewed Home Medications: Simvastatin [Zocor] 20 mg PO DAILY 10/12/16 [Last Taken 01/28/17 05:00] Allopurinol [Allopurinol 300 MG (RX)] 300 mg PO DAILY 12/23/16 [Last Taken 01/21] Herbals/Supplements -Info Only 1 ea PO DAILY 12/23/16 [Last Taken 01/14/17] Multivitamins [Multivitamin (*)] 1 each PO DAILY 12/23/16 [Last Taken 01/28/17 05:00] Offerman-3 Fatty Acids [Fish Oil 1000 mg (*)] 1,000 mg PO DAILY 12/23/16 [Last Taken 01/14/17] - NPO status NPO Status: no food or drink >8 hours NPO Since - Liquids (Date): 04/27/17 NPO Since - Liquids (Time): 23:00 NPO Since - Solids (Date): 04/27/17 NPO Since - Solids (Time): 07:00 - Anes Hx Anes Hx: no prior problems - Smoking Hx Smoking Status: Former smoker - Family Anes Hx Family Hx Anesthesia Complications: none ANE Labs/Vital Signs - Vital Signs Blood Pressure: 140/88 Heart Rate: 70 Respiratory Rate: 16 O2 Sat (%): 96 Height: 6 ft 1 in Weight: 136.078 kg ANE Physical Exam - Airway Neck exam: FROM Mallampati Score: Class 2 - Cardiovascular Cardiovascular: regular rate and rhythym - ASA Status ASA Status: II ANE Anesthesia Plan Anesthesia Plan: GA with mask
[2017-04-28] MEDS ORDERED: PROPOFOL/EMULSION 500 MG/50 ML BOTTLE IV ONE (08:39)
--- NOTE | 2017-04-28 08:41 | PDGENHP ---
History & Physical Chief Complaint: Surveillance for polyps Relevant Physical Exam: GEN: NAD. Cardiac: RRR. Lungs: CTA B. Abd: Soft, nd, nt
[2017-04-28] MEDS ORDERED: NALOXONE HCL 0.4 MG/ML INJ IVP PRN (08:43)
--- NOTE | 2017-04-28 09:15 | GIREPORT ---
[facility] Surgical Services - Endoscopy Department Patient Name: eTd Chavarria Procedure Date: 04/28/2017 8:33 AM Patient Type: Outpatient Attending MD/ ER Physician: Norberto Harrington MD Procedure: Colonoscopy Indications: High risk colon cancer surveillance: Personal history of colonic polyps . His last colonoscopy was 5 years ago. Providers: Norberto Harrington MD Medicines: Monitored Anesthesia Care Complications: No immediate complications. Description of Procedure: After obtaining informed consent, the scope was passed under direct vis ion. Throughout the procedure, the patient's blood pressure, pulse, and oxyg en saturations were monitored continuously. The was introduced through the anus and advanced to the terminal ileum, with identification of the appendic eal orifice and IC valve. The colonoscopy was performed without difficulty. The patient tolerated the procedure well. The quality of the bowel preparat ion was good. Findings: The perianal and digital rectal examinations were normal. The terminal ileum appeared normal. A 5 mm polyp was found in the cecum. The polyp was sessile. The polyp w as removed with a cold snare. Resection and retrieval were complete. Verification of patient identification for the specimen was done by the physician and nurse using the patient's name and date. Estimated blood loss was minimal. The retroflexed view of the distal rectum and anal verge was normal and showed no anal or rectal abnormalities. Estimated Blood Loss: Estimated blood loss: none. Post Op Diagnosis: - The examined portion of the ileum was normal. - One 5 mm polyp in the cecum, removed with a cold snare. Resected and retrieved. - The distal rectum and anal verge are normal on retroflexion view. Recommendation: - Discharge patient to home (with escort). - Resume previous diet. - Continue present medications. - Repeat colonoscopy in 5 years for surveillance (personal history of polyps). - Await pathology results. Results are available within 10 days. - Thank you for allowing me to participate in the care of your patient. Attending Participation: I personally performed the entire procedure. Norberto Harrington MD Norberto Harrington MD 04/28/2017 9:15:18 AM This report has been signed electronicallyNorberto Harrington MD Number of Addenda: 0 Note Initiated On: 04/28/2017 8:33 AM Total Procedure Duration Time 0 hours 19 minutes 50 seconds [email or web address]
[2017-04-28 10:00] VITALS: TEMP 97.5
[2017-04-28 10:10] VITALS: RESP 15
[2017-04-28 10:28] VITALS: BP 133/87; O2SAT 95
== END 2017-04-28 10:33 | disposition home or self-care (01) ==
LOC: FSGY 06:57
PROVIDERS: ATTEND Internal Medicine Gastroenterology
PROC: 0DBH8ZX Excision of Cecum, Via Natural or Artificial Opening Endoscopic, Diagnostic (ICD-10-PCS; principal; 2017-04-28 08:45)
DX: Z12.11 Encounter for screening for malignant neoplasm of colon (principal); D12.0 Benign neoplasm of cecum; I10 Essential (primary) hypertension; G47.33 Obstructive sleep apnea (adult) (pediatric); Q60.0 Renal agenesis, unilateral; M10.9 Gout, unspecified; Z86.010 Personal history of colon polyps; Z87.891 Personal history of nicotine dependence; Z96.649 Presence of unspecified artificial hip joint
CPT/HCPCS: J2704